=== PATIENT | female | born 1965 | race Caucasian/White ===

== ENCOUNTER 2017-01-31 03:22 | Inpatient (IN) | payer OTHER ==
[~2017-01-31] VITALS: Ht 165.1 cm; Wt 86.0 kg
[~2017-01-31 03:22] MED LIST: MOTRIN800 MG PO; TYLENOL WITH C1 EACH PO
[2017-01-31 04:21] LABS: EOSINOPHIL (%) 0.9 % (0-5); EOSINOPHIL COUNT 0.1 K/uL (0-0.3); HEMATOCRIT 33.8 % (36.0-46.0); IMMATURE GRANULOCYTE (%) 0.4 % (0.0-0.7); INSTRUMENT ABS NEUTROPHIL CT 6.8 K/uL; MCHC 32.2 G/DL (30.0-36.0); MCV 83.7 FL (83-99); MEAN PLAT.VOLUME 9.3 uM^3 (9.5-12.4); MONOCYTE (%) 6.6 % (3-12); MONOCYTE COUNT 0.6 K/uL (0-0.8); NEUTROPHIL (%) 79.7 % (45-76); NEUTROPHIL COUNT 6.8 K/uL (1.8-6.4); PLATELET COUNT 384 K/uL (156-360); RBC DIS.WIDTH-CV 14.5 % (11.8-14.6); RED BLOOD COUNT 4.04 M/uL (3.80-5.20); WHITE BLOOD COUNT 8.5 K/uL (4.1-10.2)
[2017-01-31 04:30] LABS: CHLORIDE 105 mEq/L (99-109); POTASSIUM 4.1 mEq/L (3.7-5.4); SODIUM 136 mEq/L (136-147)
[2017-01-31 04:31] LABS: GLUCOSE 99 mg/dL (70-99)
[2017-01-31 04:33] LABS: ANION GAP 9 MEQ/L (2-14)
[2017-01-31 04:35] LABS: GFR ESTIMATE (CALCULATED) > 59 mL/min/
[2017-01-31 04:36] LABS: UREA NITROGEN (BUN) 12 mg/dL (9-23)
[2017-01-31 06:20] LABS: ADD MIUA? YES; BILIRUBIN NEGATIVE; BLOOD SMALL; COLOR YELLOW ((YELLOW)); GLUCOSE (STRIP) NEGATIVE; KETONES NEGATIVE; LEUKOCYTES NEGATIVE; NITRITE NEGATIVE; PROTEIN (STRIP) NEGATIVE; UROBILINOGEN 0.2 MG/DL (0.2-1.0)
[2017-01-31 06:24] LABS: BACTERIA NONE SEEN /HPF; EPITHELIAL CELLS 1+ /HPF; MUCUS NONE SEEN /LPF; RED BLOOD CELLS 0-5 /HPF (0-5); UCUL ADDED? NO; WHITE BLOOD CELLS 0-5 /HPF (0-5)
[2017-01-31 07:15] VITALS: BP 112/65
[2017-01-31 12:55] VITALS: BP 108/64
[2017-01-31] MEDS ORDERED: POLY-VITAMIN1 EACH PO (14:41)
[2017-01-31 15:43] VITALS: BP 113/68
[2017-01-31 20:14] VITALS: BP 123/69
[2017-02-01 00:03] VITALS: BP 110/62
[2017-02-01 03:47] VITALS: BP 112/60
[2017-02-01 07:15] LABS: HEMATOCRIT 29.3 % (36.0-46.0); MCH 26.5 PG (29.0-34.0); MCHC 30.7 G/DL (30.0-36.0); MCV 86.4 FL (83-99); MEAN PLAT.VOLUME 9.5 uM^3 (9.5-12.4); PLATELET COUNT 360 K/uL (156-360); RBC DIS.WIDTH-CV 14.6 % (11.8-14.6); RBC DIS.WIDTH-SD 46.4 % (39-53); RED BLOOD COUNT 3.39 M/uL (3.80-5.20); WHITE BLOOD COUNT 9.7 K/uL (4.1-10.2)
[2017-02-01 07:41] LABS: ANION GAP 8 MEQ/L (2-14); CHLORIDE 108 MEQ/L (99-109); GFR ESTIMATE (CALCULATED) > 59 mL/min/; GLUCOSE 101 mg/dL (70-99); POTASSIUM 4.5 MEQ/L (3.7-5.4); SAMPLE HEMOLYSIS CHECK 0; SAMPLE ICTERIC CHECK 0; SAMPLE LIPEMIA CHECK 0; SODIUM 140 MEQ/L (136-147); UREA NITROGEN (BUN) 12 mg/dL (9-23)
[2017-02-01 08:45] VITALS: BP 122/63
[2017-02-01 11:28] VITALS: BP 122/62
[2017-02-01] MEDS ORDERED: DOCUSATE SODIU100 MG PO (15:15)
[2017-02-01] MEDS ORDERED: TAMSULOSIN HCL0.4 MG PO (15:15)
[2017-02-01] MEDS ORDERED: CIPRO500 MG PO ×2 (15:16→16:43)
[2017-02-01] MEDS ORDERED: POLYETHYLENE GL17 GM PO (15:16)
== END 2017-02-01 16:06 | disposition home or self-care (01) | DRG 690 ==
LOC: EME 03:22 → 2EAST 05:42 → EDOF 05:42 → ENRESERV 05:43 → 2EAST 07:09
PROVIDERS: Emergency Medicine; Physician Assistant Medical
PROC: 0T778DZ Dilation of Left Ureter with Intraluminal Device, Via Natural or Artificial Opening Endoscopic (ICD-10-PCS; principal; 2017-01-31)
DX: N13.6 Pyonephrosis (principal); D64.9 Anemia, unspecified; J98.11 Atelectasis; F32.9 Major depressive disorder, single episode, unspecified; F41.9 Anxiety disorder, unspecified; E66.9 Obesity, unspecified; Z68.31 Body mass index [BMI] 31.0-31.9, adult; Z82.49 Family history of ischemic heart disease and other diseases of the circulatory system; Z83.3 Family history of diabetes mellitus
CPT/HCPCS: 74176; 74420; 80048; 81003; 83605; 85025; 85027; 87040; 87086; 94799; 99281; 99284; C1758; C1769; C1876; J0696; J1100; J1200; J1885; J2250; J2405; J2543; J2765; J3010; J7030; J7050; S0028

== ENCOUNTER → 2017-02-28 | Outpatient (CLI) | payer OTHER ==
[~2017-02-28] MED LIST changes: +CIPRO500 MG PO; +DOCUSATE SODIU100 MG PO; +POLY-VITAMIN1 EACH PO; +POLYETHYLENE GL17 GM PO; +TAMSULOSIN HCL0.4 MG PO
== END | disposition home or self-care (01) ==
LOC: NUC 10:31
DX: R94.4 Abnormal results of kidney function studies (principal); N26.1 Atrophy of kidney (terminal)
CPT/HCPCS: 78709; A9562